=== PATIENT | female | born 1995 | race Caucasian/White ===

== ENCOUNTER → 2019-11-15 08:25 | Outpatient (CLI) | payer OTHER | END | disposition home or self-care (01) | LOC: D.US 08:00 | PROVIDERS: ATTEND Family Medicine | DX: R10.9 Unspecified abdominal pain (principal) ==

== ENCOUNTER → 2019-12-04 10:17 | Outpatient (CLI) | payer OTHER ==
[2019-12-04 11:08] LABS: HCG SERUM NEGATIVE (NEGATIVE)
== END | disposition home or self-care (01) ==
LOC: D.NM 11-29 08:30
PROVIDERS: ATTEND Family Medicine
DX: R10.10 Upper abdominal pain, unspecified (principal)

== ENCOUNTER → 2020-08-25 16:58 | Outpatient (CLI) | payer BC | END | disposition home or self-care (01) | LOC: D.CT 16:58 | PROVIDERS: ATTEND Family Medicine | DX: R31.9 Hematuria, unspecified (principal) ==